=== PATIENT | male | born 1995 | race African-American/Black ===

== ENCOUNTER 2017-03-31 23:21 | Emergency (ER) | payer OTHER ==
[~2017-03-31] VITALS: Ht 172.7 cm; Wt 61.2 kg
[2017-03-31] MEDS ORDERED: SORINE 80 MG TA80 M1 PO ×2 (23:56)
[2017-04-01] MEDS ORDERED: IBUPROFEN 800800 M1 PO (00:47)
[2017-04-01] MEDS ORDERED: FLEXERIL PO (00:47)
== END 2017-04-01 01:13 ==
LOC: ER 23:21
DX: S13.4XXA Sprain of ligaments of cervical spine, initial encounter (principal); V89.0XXA Person injured in unspecified motor-vehicle accident, nontraffic, initial encounter; Y93.89 Activity, other specified; Y92.89 Other specified places as the place of occurrence of the external cause; Y99.8 Other external cause status

== ENCOUNTER 2018-04-10 14:16 | Emergency (ER) | payer OTHER ==
[~2018-04-10] VITALS: Ht 172.7 cm; Wt 61.7 kg
[~2018-04-10 14:16] MED LIST: FLEXERIL PO; IBUPROFEN 800800 M1 PO; SORINE 80 MG TA80 M1 PO
[2018-04-10 14:46] LABS: HEMATOCRIT 45.2 % (42.0-52.0); HEMOGLOBIN 15.6 gm/dL (14.0-18.0); MCH 29.7 pg (26.0-34.0); MCHC 34.5 g/dL (28.0-37.0); PLATELET COUNT 205 thou/uL (150-400); RBC 5.26 mil/uL (4.50-6.00); RDW 13.5 % (10.5-14.5); WBC 5.6 thou/uL (4.0-11.0)
[2018-04-10 14:57] LABS: ANION GAP 11 mmol/L (7-16); BUN 9 mg/dL (7-18); CALCIUM 8.9 mg/dL (8.5-10.1); CHLORIDE 101 mmol/L (98-107); CO2 28 mmol/L (21-32); CREATININE 1.2 mg/dL (0.7-1.3); GLUCOSE 105 mg/dL (74-106); POTASSIUM 3.7 mmol/L (3.5-5.1); SODIUM 140 mmol/L (136-145)
[2018-04-10 15:05] LABS: ALBUMIN 3.9 g/dL (3.4-5.0); SGOT 18 U/L (15-37); SGPT 18 U/L (30-65); TOTAL BILIRUBIN 0.4 mg/dL (<0.1-1.0); TOTAL PROTEIN 7.2 g/dL (6.4-8.2); TROPONIN-I <0.06 ng/mL (<0.06)
[2018-04-10 15:13] LABS: ABSOLUTE NEUTROPHILS 3.8 thou/uL (1.4-8.2); PLATELET ESTIMATE NORMAL
[2018-04-10 16:57] VITALS: BP 101/67
--- NOTE | 2018-04-10 19:09 | EKG ---
[id number] [place] [address] ELECTROCARDIOGRAM REPORT Name: CRIS TAMEZ Room #: DEP David#: [id number] Admission: 04/10/18 Attend Phys: Discharge: 04/10/18 Date of : [birth year] Report #: [id number] THIS REPORT FOR: //name// [facility] ED Test Date: 2018-04-10 Test Time: 14:27:08 Pat Name: CRIS TAMEZ Department: Room: Gender: M B[employer] Digger: ALAN : 1995 Requested By: César Taylor Order Number: [id number] MD: Kerwin Sosa Measurements Intervals [place] Rate: 86 P: 61 MN: 154 QRS: 61 QRSD: 81 T: -52 QT: 352 QTc: 421 Interpretive Statements Sinus rhythm Ventricular premature complex Early transition Specific ST-T wave changes Voltage criteria for LVH No previous ECG available for comparison Electronically Signed On 04-10-2018 19:09:01 BRAND DIRECTOR by Kerwin Sosa [email or web address] <ELECTRONICALLY SIGNED> By: Kerwin Sosa MD 04/10/18 1909 1427 1427 Kerwin Sosa MD /ANTHONY
== END 2018-04-10 17:10 | disposition home or self-care (01) ==
LOC: ER 14:16
PROVIDERS: Physician Assistant
DX: J06.9 Acute upper respiratory infection, unspecified (principal); Z88.8 Allergy status to other drugs, medicaments and biological substances; Z95.0 Presence of cardiac pacemaker